=== PATIENT | female | born 2000 | race Two or more races ===

== ENCOUNTER 2019-10-28 13:42 | Emergency (ER) | payer OTHER ==
[~2019-10-28] VITALS: Ht 157.5 cm; Wt 108.0 kg
--- NOTE | 2019-10-28 16:57 | PHYS DOC ---
Past Medical History Past Medical History: No Pertinent History (TOSHA LEACH APRN) Past Surgical History: No Surgical History (TOSHA LEACH APRN) Smoking Status: Never Smoker Alcohol Use: None (TOSHA LEACH APRN) General Adult EDM: Chief Complaint: COUGH HPI: HPI: Patient is a 19 year old female who presents with complaints of a sore throat for the past 3 days along with a nonproductive cough that she associates with her sore throat, also states that when she coughs it makes her head hurt, but denies head pain when she is not coughing. Patient states that she is 31 weeks with a last menstrual period on April 102018 with a due date of December 29, 2019. Indicates she is a G1, P0, and has had no problems with this , states she can feel the baby move, states she is not concerned with her as she denies any problems with with her today. Patient states that she is worried about having COVID and wishes to have a COVID test. Patient states her next appointment with her OB doctor at [facility] Dr. Ayala is on 06 November. Patient denies fever or chills, denies vision changes, denies nasal congestion, does complain of a sore throat with pain that increases with a cough that is nonproductive. Patient denies shortness of breath. Patient denies any chest pain or swelling of her extremities. Patient denies any abdominal pain, nausea, vomiting, diarrhea, blood in her stool, or constipation problems. Patient denies any dysuria, however does state that since she has been the baby pushes on her bladder and it makes her pee more often which is been normal for her. Patient denies back pain, joint pains, skin rashes, focal weaknesses or sensory changes. Patient does complain of head pain when she coughs however states her head pain is completely relieved if she is not coughing. Patient denies any polyuria or polydipsia, any swelling of her glands, denies any recent depressions or anxieties, denies HI SI. Patient denies anyone living in her home with the same symptoms. (TOSHA LEACH APRN) Review of Systems: Review of Systems: Constitutional: Denies fever or chills. Eyes: Denies change in visual acuity. HENT: Denies nasal congestion or complains of sore throat Respiratory: Denies shortness of breath, complains of nonproductive cough with increased throat pain when coughing Cardiovascular: Denies chest pain or edema. GI: Denies abdominal pain, nausea, vomiting, bloody stools or diarrhea, denies constipation. : Denies dysuria. Musculoskeletal: Denies back pain or joint pain. Integument: Denies rash. Neurologic: Denies focal weakness or sensory changes, complains of head pain when coughing otherwise denies headache. Endocrine: Denies polyuria or polydipsia. Lymphatic: Denies swollen glands. Psychiatric: Denies depression or anxiety, denies HI/SI. (TOSHA LEACH APRN) Heart Score: Risk Factors: Risk Factors: DM, Current or recent (<one month) smoker, HTN, HLP, family history of CAD, obesity. Risk Scores: Score 0 - 3: 2.5% MACE over next 6 weeks - Discharge Home Score 4 - 6: 20.3% MACE over next 6 weeks - Admit for Clinical Observation Score 7 - 10: 72.7% MACE over next 6 weeks - Early Invasive Strategies (TOSHA LEACH APRN) Family History: Family History: No family history associated with this visit. (TOSHA LEACH APRN) Allergies: Allergies: Patient denies allergies to medications. Allergies Coded Allergies Type Severity Reaction Last Updated Verified No Known Drug Allergies 10/28/19 No (TOSHA LEACH APRN) Physical Exam: PE: Constitutional: Well developed, well nourished, no acute distress, non-toxic appearance. HENT: Normocephalic, atraumatic, bilateral external ears normal, bilateral TMs within normal limits, oropharynx moist, no oral exudates, nose normal, oropharynx red and erythematous with cobblestoning without postnasal drip, drainage of oropharynx, no tonsillar swelling, no lymphadenopathy. Eyes: PERRLA, EOMI, conjunctiva normal, no discharge. Pupils 4 mm Neck: Normal range of motion, no tenderness, supple, no stridor. Cardiovascular:Heart rate regular rhythm, no murmur heart sounds S1-S2, no abnormalities per auscultation. Lungs & Thorax: Bilateral breath sounds clear to auscultation all lung haas. Abdomen: Bowel sounds normal all 4 quadrants, soft, no tenderness, no masses, no pulsatile masses. Skin: Warm, dry, no erythema, no rash. Back: No tenderness, no CVA tenderness. Extremities: No tenderness, no cyanosis, no clubbing, ROM intact, no edema. Neurologic: Alert and oriented X 3, normal motor function, normal sensory function, no focal deficits noted. Psychologic: Affect normal, judgement normal, mood normal. : Fundus approximately 4 cm above umbilicus, movement appreciated, heart tones per labor and delivery nurse using Doppler heart rate 140 with patient's heart rate 72 (TOSHA LEACH APRN) Current Patient Data: Vital Signs: Vital Signs Date Time Temp Pulse Resp B/P (MAP) Pulse Ox O2 Delivery O2 Flow Rate FiO2 10/28/19 14:31 98.8 103 18 144/85 (104) 97 Room Air 98.8 (TOSHA LEACH APRN) EKG: EKG: [] (TOSHA LEACH APRN) Radiology/Procedures: Radiology/Procedures: [] (TOSHA LEACH APRN) Course & Med Decision Making: Course & Med Decision Making Pertinent Labs and Imaging studies reviewed. (See chart for details) 19-year-old female patient presents emergency department complaining of cough sore throat for the past 3 days along with head pain when she coughs, cough is nonproductive. Patient states she does not feel sick but only has a sore throat. Patient is 31 weeks 1 para 0 with a last menstrual period of March 21, 2019 and an EDC of December 29, 2019, currently sees a Dr. AYALA at OB with an appointment on 07 November 2019. Patient denies any problems with this , states she can feel the baby move, has no concerns about the at this time. Labor and delivery nurses evaluated patient's heart tones, FHT 140, with patient's heart rate 72. Vital signs were reviewed. Patient was concerned about COVID testing stating she has had several appointments and has made trips to the pharmacy and grocery store and fears that she may have COVID. A COVID test was performed patient considered a PUI and instructions given for follow-up of test results. A strep test was obtained sent to lab and negative strep a result was received. Physical exam is concerning for acute viral pharyngitis, is least likely mononucleosis. Patient was given instructions for acute viral pharyngitis home care, advised to follow-up with her OB doctor before her appointment on 06 November if possible, return to emergency department concerns. Discharge to home instructions reviewed with patient, patient was agreeable to discharge instructions and gave verbal understanding. Patient had no further questions or concerns. Patient discharged to home self-care. (TOSHA LEACH APRN) Dragon Disclaimer: Dragon Disclaimer: This electronic medical record was generated, in whole or in part, using a voice recognition dictation system. (TOSHA LEACH APRN) Departure Departure Impression: Primary Impression: Pharyngitis Qualified Codes: J02.9 - Acute pharyngitis, unspecified Disposition: HOME, SELF-CARE Condition: GOOD Referrals: NO PCP (PCP) Patient Instructions: Viral Pharyngitis Additional Instructions: PLEASE SEE YOUR REHAB ASSISTANT THIS WEDNESDAY. USE OVER THE COUNTER TYLENOL FOR DISCOMFORT. YOU HAVE BEEN TESTED FOR THE COVID-19 VIRUS, THIS TEST SHOULD BE COMPETE IN TWO DAYS. RETURN TO THE ER FOR FURTHER CONCERNS. Justicifation of Admission Dx: Justifications for Admission: Justification of Admission Dx: N/A (TOSHA LEACH APRN) Attending Signature Attending Signature I have reviewed the PA/ENGINEERING SYSTEMS ANALYST's note and plan of care. I was available for consultation as needed during the patient's visit in the emergency department. I agree with the clinical impression, plan, and disposition. (TOSHA PABON DO) TOSHA LEACH APRN Oct 28, 2019 16:56 TOSHA PABON DO Nov 02, 2019 01:13
[2019-10-28 17:15] VITALS: BP 148/71
== END 2019-10-28 17:15 | disposition home or self-care (01) ==
LOC: ER 13:42
DX: O99.513 Diseases of the respiratory system complicating pregnancy, third trimester (principal); Z20.828 Contact with and (suspected) exposure to other viral communicable diseases; J02.9 Acute pharyngitis, unspecified; R50.9 Fever, unspecified; R05 Cough; R51 Headache; Z3A.31 31 weeks gestation of pregnancy
CPT/HCPCS: 87070; 87880; 99283; U0003

== ENCOUNTER 2020-07-26 08:16 | Emergency (ER) | payer OTHER ==
[~2020-07-26] VITALS: Ht 157.5 cm; Wt 100.0 kg
[2020-07-26 08:30] VITALS: BP 155/81
--- NOTE | 2020-07-26 08:52 | ED.ADGEN ---
Past Medical History Past Medical History: No Pertinent History Past Surgical History: No Surgical History Smoking Status: Never Smoker Alcohol Use: None General Adult EDM: Chief Complaint: PAIN ON URINATION HPI: HPI: Patient is a 19 year old female coming in for dysuria for 1 week. Patient states she has had a little bit of blood when she wipes. Denies any vaginal discharge or mucus. Patient has some suprapubic pain but no lateralizing pain. Denies any dyspareunia. States her last menstrual period was 2 months ago but has Mirena and has irregular periods. She is sexually active with 1 male partner not using protection. Patient states she is not concerned about STDs and declines staying for STDs. Denies any systemic complaints. States she otherwise has been well. No past medical history, no medication allergies Review of Systems: Review of Systems: All other systems within normal limits except for as noted in the HPI Allergies: Allergies: Allergies Coded Allergies Type Severity Reaction Last Updated Verified No Known Drug Allergies 10/28/19 No Physical Exam: PE: Constitutional: Well developed, well nourished, no acute distress, non-toxic appearance. [] HENT: Normocephalic, atraumatic, bilateral external ears normal, nose normal. [] Eyes: PERRLA, conjunctiva normal, no discharge. [] Neck: No rigidity, supple, no stridor. [] Cardiovascular: Regular rate and rhythm, brisk cap refill [] Lungs & Thorax: Non labored symmetric respirations, no tachypnea or respiratory distress [] Abdomen: Soft, nondistended, mild suprapubic tenderness, no right lower or left lower quadrant tenderness.. Skin: Warm, dry, no erythema, no rash. [] Back: Unremarkable Extremities: No deformities, range of motion grossly intact, no lower extremity edema [] Neurologic: Alert and oriented X 3, no focal deficits noted. [] Psychologic: Affect normal, judgement normal, mood normal. [] Current Patient Data: Labs: Laboratory Tests Test 07/26/20 08:30 07/26/20 08:35 Urine Collection Type Unknown Urine Color Yellow Urine Clarity Cloudy Urine pH 5.0 (<5.0-8.0) Urine Specific Fisher 1.020 (1.000-1.030) Urine Protein Negative mg/dL (NEG-TRACE) Urine Glucose (UA) Negative mg/dL (NEG) Urine Ketones (Stick) Negative mg/dL (NEG) Urine Blood Large (NEG) Urine Nitrite Negative (NEG) Urine Bilirubin Negative (NEG) Urine Urobilinogen Dipstick 0.2 mg/dL (0.2 mg/dL) Urine Leukocyte Esterase Large (NEG) Urine RBC 6-10 /HPF (0-2) Urine WBC Tntc /HPF (0-4) Urine Bacteria Few /HPF (0-FEW) POC Urine HCG, Qualitative Hcg negative (Negative) Vital Signs: Vital Signs Date Time Temp Pulse Resp B/P (MAP) Pulse Ox O2 Delivery O2 Flow Rate FiO2 07/26/20 08:30 98.2 74 16 155/81 (105) 98 Room Air 98.2 EKG: EKG: [] Heart Score: C/O Chest Pain: No Risk Factors: Risk Factors: DM, Current or recent (<one month) smoker, HTN, HLP, family history of CAD, obesity. Risk Scores: Score 0 - 3: 2.5% MACE over next 6 weeks - Discharge Home Score 4 - 6: 20.3% MACE over next 6 weeks - Admit for Clinical Observation Score 7 - 10: 72.7% MACE over next 6 weeks - Early Invasive Strategies Radiology/Procedures: Radiology/Procedures: [] Course & Med Decision Making: Course & Med Decision Making Pertinent Labs and Imaging studies reviewed. (See chart for details) [] Dragon Disclaimer: Dragon Disclaimer: This electronic medical record was generated, in whole or in part, using a voice recognition dictation system. Departure Departure Impression: Primary Impression: UTI (urinary tract infection) Disposition: 01 [place] HOME SELF CARE/HOMELESS Condition: STABLE Referrals: NO PCP (PCP) Patient Instructions: Urinary Tract Infection Scripts Cephalexin (CEPHALEXIN) 500 Mg Capsule 1 CAP PO BID for uti for 7 Days, #14 CAP Prov: MALAIKA RIVERO MD 07/26/20 MALAIKA RIVERO MD Jul 26, 2020 08:52
[2020-07-26 08:59] LABS: BILIRUBIN,URINE NEGATIVE (NEG); COLOR,URINE YELLOW; NITRITE,URINE NEGATIVE (NEG); PROTEIN,URINE NEGATIVE (NEG-TRACE); UROBILINOGEN,URINE 0.2 mg/dL (0.2 mg/dL)
[2020-07-26 09:15] LABS: CLARITY,URINE CLOUDY; WBC,URINE TNTC /HPF (0-4)
[2020-07-26 09:16] LABS: BACTERIA,URINE FEW /HPF (0-FEW)
[2020-07-26] MEDS ORDERED: CEPH500C PO (09:23)
== END 2020-07-26 09:40 | disposition home or self-care (01) ==
LOC: ER 08:16
DX: N39.0 Urinary tract infection, site not specified (principal); R30.0 Dysuria; N92.6 Irregular menstruation, unspecified
CPT/HCPCS: 81001; 81025; 87086; 99283